=== PATIENT | male | born 1985 | race Two or more races ===

== ENCOUNTER 2020-08-09 16:54 | Emergency (ER) | payer BC, SELFPAY ==
[2020-08-09 17:24] VITALS: BP 113/73; PULSE 79; RESP 16; TEMP 36.8; O2SAT 98; BMI 24.5
--- NOTE | 2020-08-09 17:54 | ED.BACK ---
HPI - Back Pain/Injury General Chief Complaint: Back Pain/Injury Stated Complaint: Back Pain Time Seen by Provider: 08/09/20 17:54 History of Present Illness HPI Narrative: Patient complains of right upper back pain after working on a car, not a work injury, the pain is upper back with no radiation no fever no chills no chest pain no shortness of breath Related Data Previous Rx's Medication Instructions Recorded cyclobenzaprine 5 mg PO TID PRN #10 tab 08/09/20 hydrocodone-acetaminophen 1 tab PO Q6H PRN 3 Days #10 tab 08/09/20 hydrocodone-acetaminophen 1 tab PO Q6H PRN 3 Days #10 tab 08/09/20 ibuprofen 600 mg PO Q6H PRN #20 tab 08/09/20 ibuprofen 600 mg PO Q6H PRN #20 tab 08/09/20 Allergies Allergy/AdvReac Type Severity Reaction Status Date / Time No Known Allergies Allergy Verified 08/09/20 18:12 Review of Systems Review of Systems: Positive for upper back pain right side with movement There is no numbness no weakness no paresthesias no chest pain no shortness of breath no radiation of pain no changes to bowel or bladder no rash PMFSH Past Medical History Source: nursing notes reviewed Medical History (Updated 08/09/20 @ 18:02 by EUGENIA Moreno) No known health problems Social History Social History Advance Directives: No Advance Directives Information Provided: No Physical Exam Vital Signs: Vital Signs: Last Vital Signs Temp 98.2 F 08/09/20 17:24 Pulse 79 08/09/20 17:24 Resp 16 08/09/20 17:24 BP 113/73 08/09/20 17:24 Pulse Ox 98 08/09/20 17:24 Body Mass Index 24.5 General appearance no acute distress cooperative A&O x3 The head is normocephalic atraumatic The neck is supple with no tenderness to the neck or trapezius on either side The chest there is no respiratory distress Chest is clear to auscultation bilaterally The abdomen is soft nontender The back the right upper back between midline and lower scapula is tender, the skin is normal, pain is easily reproduced in this area with movement, there is no focal bony tenderness and there is no CVA tenderness The extremities are full range of motion x4 including right shoulder with there is no tenderness to the right shoulder and there is a full range of motion of the right shoulder but movement of the shoulder does produce pain in this upper back area Neuro no focal deficit, motor is 5/5 x4 and sensation is intact Course Course Course Narrative: Patient is treated for musculoskeletal strain of the upper back Discharge Plan Discharge Clinical Impression: Back pain Qualifiers: Back pain location: thoracic back pain Chronicity: acute Back pain laterality: right Qualified Code(s): M54.6 - Pain in thoracic spine Patient Disposition: Home, Self-Care Additional Instructions: Follow with primary doctor for referral for physical therapy Chiropractor is often helpful as is massage Return to ER any time any worse condition or concerns Prescriptions: New ibuprofen 600 mg tablet 600 mg PO Q6H PRN (Reason: pain) Qty: 20 RF: 0 hydrocodone-acetaminophen 5-325 mg tablet 1 tab PO Q6H PRN (Reason: pain) 3 Days Qty: 10 RF: 0 ibuprofen 600 mg tablet 600 mg PO Q6H PRN (Reason: pain) Qty: 20 RF: 0 cyclobenzaprine 5 mg tablet 5 mg PO TID PRN (Reason: muscle spasm) Qty: 10 RF: 0 hydrocodone-acetaminophen 5-325 mg tablet 1 tab PO Q6H PRN (Reason: pain) 3 Days Qty: 10 RF: 0 Stand Alone Forms: Work/School Release
== END 2020-08-09 18:35 | disposition home or self-care (01) ==
PROVIDERS: Emergency Provider Emergency Medicine
DX: M54.6 Pain in thoracic spine (principal)
CPT/HCPCS: 99283; 99284